=== PATIENT | female | born 1945 | race Caucasian/White ===

== ENCOUNTER → 2019-12-27 | Outpatient (CLI) | payer MEDICARE ==
[~2019-12-27] MED LIST: BLOOD PRESSURE PILL; DCS100C PO; ESCI20TA2 PO; ESCT10T PO; HYDR-34 PO; HYDR-3583 PO; IBP600T1 PO; METO-272 PO; TRAM50TA2 PO; TRIA1CAP4 PO; [UNRECOGNIZED DRUG - REMARK]
== END ==
LOC: LABNPT 08:31
PROVIDERS: ATTEND Nurse Practitioner Family
DX: J06.9 Acute upper respiratory infection, unspecified (principal); R53.81 Other malaise; Z20.828 Contact with and (suspected) exposure to other viral communicable diseases
CPT/HCPCS: 87635